=== PATIENT | female | born 1985 | race Caucasian/White ===

== ENCOUNTER 2017-02-02 08:58 | Day surgery (SDC) | payer OTHER ==
[2017-01-24 14:59] VITALS: BMI 26.3
--- NOTE | 2017-02-02 07:53 | OP ---
Operative Note - Note: Operative Date: 02/02/17 Pre-Operative Diagnosis: r sh tear Operation: scope r sh Surgeon: Nigel Trejo V Anesthesia: Fractional Estimated Blood Loss (mls): 11 Operative Report Dictated: Yes
--- NOTE | 2017-02-02 07:54 | HP ---
History & Physical Update - History History: No Change - Physical Physical: No Change - Assessment Assessment: No Change - Plan Plan: No Change
[2017-02-02] MEDS ORDERED: MIDAZOLAM HCL 2 MG/2 ML SINGLE DOSE VIAL ONE ×3 (10:34→11:10)
[2017-02-02] MEDS ORDERED: DEXAMETHASONE SOD PHOSPHATE/PF 10 MG/ML SDV ONE (10:34)
[2017-02-02] MEDS ORDERED: BUPIVACAINE HCL/PF (5 MG/ML) 30 ML VIAL IJ ONE (10:35)
[2017-02-02] MEDS ORDERED: oxyCODONE HCL 5 MG TABLET PO PRN (11:05)
[2017-02-02] MEDS ORDERED: ONDANSETRON 4 MG/2 ML VIAL IVPUSH PRN (11:05)
[2017-02-02] MEDS ORDERED: DEXAMETHASONE SOD PHOSPHATE 4 MG/1 ML VIAL ONE (11:10)
[2017-02-02] MEDS ORDERED: LIDOCAINE HCL/PF 2% SDV 5ML VIAL ONE (11:10)
[2017-02-02] MEDS ORDERED: KETOROLAC TROMETHAMINE 30 MG/1 ML VIAL ONE (11:10)
[2017-02-02] MEDS ORDERED: PROPOFOL 20 ML ONE (11:10)
[2017-02-02] MEDS ORDERED: ceFAZolin SODIUM 1 GM VIAL ONE (11:10)
[2017-02-02] MEDS ORDERED: LACTATED RINGERS SOLUTION 1,000 ML IV SCH (11:15)
[2017-02-02] MEDS ORDERED: CEFAZOLIN 1 GM/D5W 50 ML IVPB ONE (12:00)
[2017-02-02] MEDS ORDERED: MEPERIDINE HCL CARPU-JECT 25 MG/1 ML DISP.SYRIN ONE (12:52)
--- NOTE | 2017-02-02 13:54 | OP ---
DATE OF OPERATION: 02/02/2017 SURGEON: Nigel Vazquez MD CLE[employer]ER [employer] UPHOLSTERY: JOSEP Park ANESTHESIA: Rishi Boateng CRNA, general with block. ANTIBIOTIC: Kefzol 2 g. PREOPERATIVE DIAGNOSIS: Right shoulder internal derangement. POSTOPERATIVE DIAGNOSES: Right shoulder cuff tear, impingement, acromioclavicular arthritis, and labral tearing. PROCEDURE PERFORMED: Rotator cuff repair, acromioclavicular arthroplasty, arthroscopic subacromial decompression, and labrectomy. HISTORY: A 31-year-old woman who has not improved from this injury despite conservative measures. She had a cuff tear impingement. Her biceps was clean as a whistle. She had a sublabral foramen which was not a tear. She had a fairly lax shoulder but no Bankart lesion. The subscapularis was intact. There were no loose bodies in the pouch. She had impingement morphology, AC arthrosis, and the cuff tear as we noted. DESCRIPTION OF PROCEDURE: Patient brought to the operating room, placed on the table in the beach chair position. Olecranons were padded. Care was taken with the neck. Sterile prep and drape was performed with Betadine solution, antibiotics were given, and the arthroscope was entered through the posterior portal. Labrectomy: Getting into the shoulder, the above findings were noted. There was a large posterior-superior flap of labrum which was interposing and likely symptomatic. This was resected and normalized using hand and motorized instrumentation. Cuff repair: We marked the undersurface of the rotator cuff which was visible from below with a needle. We went superiorly and debrided back the cuff tear to good tissue. This left us with about a 1.7-cm tear in the supraspinatus. We prepared the juxtaarticular surface of the greater tuberosity down to punctate bleeding bone and then placed our medial row anchor which was a triple Regenerex by [employer]. Sutures were passed in mattress fashion in about a 75-degree arc. We then did a second row using 4.5 Bio PushLocks by [employer]. We were very pleased with cuff contact, pressures and stability. Acromioclavicular arthroplasty: We now resected the entire distal aspect of the clavicle. The outer 11 mm were taken. Care was taken to avoid the conoid and trapezoid ligaments. Arthroscopic subacromial decompression: We now performed a biplaning acromioplasty and took down the CA ligament for a significant anteromedial hook. This was done with bone instruments. Conclusion: We closed the portals with Monocryl. A dressing was applied. She returned to Recovery with vital signs stable, having tolerated the procedure well. She will be discharged to home now from the outpatient area with shoulder sheath and Percocet. I will see her in the office for followup in 1 week. NIGEL VAZQUEZ M.D. [id number] MTDD
[2017-02-02] MEDS ORDERED: MEPERIDINE HCL CARPU-JECT 25 MG/1 ML DISP.SYRIN IVPUSH ONE (14:00)
[2017-02-02 17:02] VITALS: BP 114/60; PULSE 75; TEMP 97.9
--- NOTE | 2017-02-05 15:34 | SURG ---
Surgery Copy Operator Note Copy Operator: Araceli Boateng PA-C Date of Service: 02/02/17 Diagnosis: Pre-op: Right shoulder internal derangement POst-op: Right shoulder cuff tear, impingement, acromioclavicular arthritis, and labral tearing Procedure: Rotator cuff repair, acromioclavicular arthroplasty, arthroscopic subacromial decompression, and labrectomy I was present for the entirety of the operative procedure. For further detail, please refer to operative report. Visit type - Case Type Case Type: Scheduled Admission
--- NOTE | 2017-02-08 15:09 | PATH ---
Surgical Pathology Report Patient Name: MAXIMUS PERES [facility]. Rec. #: [id number] /Age/Gender: 1985 (Age: 31) / F Account: [id number] Location: [facility] Taken: 02/02/2017 Received: 02/02/2017 Reported: 02/08/2017 Physicians: Nigel Trjeo M.D. Specimen(s) Received SHAVINGS RIGHT SHOULDER Clinical History Right rotator cuff tear Final Diagnosis SHOULDER, RIGHT, ARTHROSCOPIC SHAVINGS: FIBROCOLLAGENOUS TISSUE AND SKELETAL MUSCLE. Electronically Signed Beatris Garcias M.D. Gross Description Received in formalin, labeled "shavings right shoulder" and 3.0 x 2.0 x 0.7 cm multiple fragments of cuevas-white and cuevas-yellow tissue. Hand Tire Trimmer sections submitted one cassette. AF/02/05/2017 final/02/05/2017
== END 2017-02-02 15:45 | disposition home or self-care (01) ==
LOC: FASU 08:58
PROVIDERS: ATTEND Orthopaedic Surgery
PROC: 0PB94ZZ Excision of Right Clavicle, Percutaneous Endoscopic Approach (ICD-10-PCS; 2017-02-02)
PROC: 0RQJ4ZZ Repair Right Shoulder Joint, Percutaneous Endoscopic Approach (ICD-10-PCS; 2017-02-02)
PROC: 0LB14ZZ Excision of Right Shoulder Tendon, Percutaneous Endoscopic Approach (ICD-10-PCS; principal; 2017-02-02 11:56)
PROC: 0RNJ4ZZ Release Right Shoulder Joint, Percutaneous Endoscopic Approach (ICD-10-PCS; 2017-02-02 11:56)
DX: M75.101 Unspecified rotator cuff tear or rupture of right shoulder, not specified as traumatic (principal); M75.41 Impingement syndrome of right shoulder; M19.011 Primary osteoarthritis, right shoulder; M24.111 Other articular cartilage disorders, right shoulder
CPT/HCPCS: 84703; 88304-TC; 94760

== ENCOUNTER 2017-05-24 18:13 | Emergency (ER) | payer OTHER ==
[2017-05-24 18:26] VITALS: BP 128/71; PULSE 76; TEMP 98.1; BMI 26.6
--- NOTE | 2017-05-24 18:51 | PDOC ---
History of Present Illness - General Chief Complaint: Respiratory Stated Complaint: CHEST PAIN Time Seen by Provider: 05/24/17 18:50 History Source: Patient Exam Limitations: No Limitations - History of Present Illness Initial Comments: 05/24/17 19:30 My chief complaint: Cough with chest discomfort fever and vomiting after coughing History of present illness: Patient is a 31-year-old female with a history of anemia and GERD here today complaining of starting with a cough 6 days ago with posttussive vomiting and chest discomfort patient last vomited 3 days ago. Posttussive. Patient reports having a productive cough with clear phlegm. Patient reports having a MAXIMUM TEMPERATURE of 103 last night. Patient denies any wheezing or shortness of breath. Patient denies any abdominal pain. Patient denies any chance of . She reports that one of her friends was recently diagnosed with pneumonia yesterday that she had been around. Patient also works in a daycare center. She denies any recent travel.. Timing/Duration: intermittent (6 days) Severity: moderate Associated Symptoms: reports: cough (productive clear ), fever/chills (TMAX 103 last night), nausea/vomiting (post tussive for a few days none for 3 days). denies: shortness of breath Past History - Past Medical History Allergies/Adverse Reactions: Allergies Allergy/AdvReac Type Severity Reaction Status Date / Time No Known Allergies Allergy Verified 05/24/17 18:23 Home Medications: Ambulatory Orders Ferrous Sulfate [Feosol] 325 mg PO BID 08/01/16 Azithromycin [Zithromax 250mg Tablets -] 250 mg PO UTDICT #6 tab 05/24/17 Guaifenesin Dm [Mucinex Dm -] 1 tab PO Q12H PRN #14 tab.er.12h MDD 2 05/24/17 Anemia: Yes Asthma: No Cancer: No Cardiac Disorders: No CVA: No COPD: No CHF: No Dementia: No Diabetes: No GI Disorders: Yes (GERD) Disorders: No HTN: No Hypercholesterolemia: No Liver Disease: No Seizures: No Thyroid Disease: No - Surgical History Abdominal Surgery: Yes (GASTRIC SLEEVE 01/2014/LESLEE PAINTING 2015) Appendectomy: No Cardiac Surgery: No Cholecystectomy: No GI Surgery: Yes (gastric sleeve) Lung Surgery: No Neurologic Surgery: No Orthopedic Surgery: No - Immunization History Immunization Up to Date: Yes - Suicide/Smoking/Psychosocial Hx Smoking Status: No Smoking History: Never smoked Have you smoked in the past 12 months: No Number of Cigarettes Smoked Daily: 0 Hx Alcohol Use: Yes (RARE) Drug/Substance Use Hx: No Substance Use Type: Alcohol Hx Substance Use Treatment: No Review of Systems - Review of Systems Able to Perform ROS?: Yes Constitutional: Yes: Fever, Weakness (generalized ) HEENTM: No: Symptoms Reported Respiratory: Yes: Productive cough (clear ). No: Orthopnea, Shortness of Breath , SOB with Exertion, SOB at Rest, Stridor, Wheezing, Hemoptysis Cardiac (ROS): No: Symptoms Reported ABD/GI: Yes: Vomiting (post tussive stasrted 6 days ago, last time 3 days ago) Musculoskeletal: No: Symptoms Reported Integumentary: No: Symptoms Reported Neurological: No: Symptoms reported *Physical Exam - Vital Signs Last Vital Signs Temp Pulse Resp BP Pulse Ox 98.1 F 76 19 128/71 98 05/24/17 18:23 05/24/17 18:23 05/24/17 18:23 05/24/17 18:23 05/24/17 18:23 - Physical Exam General Appearance: Yes: Appropriately Dressed HEENT: positive: Normal ENT Inspection Neck: negative: Lymphadenopathy (R), Lymphadenopathy (L) Respiratory/Chest: positive: Lungs Clear, Normal Breath Sounds. negative: Chest Tender, Respiratory Distress Cardiovascular: positive: Regular Rhythm, Regular Rate, S1, S2 Gastrointestinal/Abdominal: positive: Normal Bowel Sounds, Soft. negative: Tender, Organomegaly, Distended, Guarding, Rebound, Tenderness, Hepatomegaly, Spleenomegaly Integumentary: positive: Normal Color Neurologic: positive: Alert, Responsive Heart Score/ECG Review - ST and T Comment:: 05/24/17 20:20 NSR reviewed by Medical Decision Making - Medical Decision Making 05/24/17 19:32 Patient is a 31-year-old female with a history of anemia and GERD here today complaining of starting with a cough 6 days ago with posttussive vomiting and chest discomfort patient last vomited 3 days ago. Posttussive. Patient reports having a productive cough with clear phlegm. Patient reports having a MAXIMUM TEMPERATURE of 103 last night. Patient denies any wheezing or shortness of breath. Patient denies any abdominal pain. Patient denies any chance of . She reports that one of her friends was recently diagnosed with pneumonia yesterday that she had been around. Patient also works in a daycare center. She denies any recent travel. Rule out infiltrate Plan: X-ray chest PA and lateral questionable early infiltrate right lower lobe Decadron 10 mg by mouth now DuoNeb 05/24/17 20:15 will treat with Mucinex DM 1 tab q 12hr prn cough for 5 days azithromycin 250 mg 2 tabs day one than 1 tab daily for following 4 days EKG NSR reviewed by 05/24/17 20:20 *DC/Admit/Observation/Transfer Diagnosis at time of Disposition: Bronchitis - Discharge Dispostion Disposition: HOME Condition at time of disposition: Stable - Patient Instructions Additional Instructions: drink a lot a fluids Follow up with primary care provider within the next few days Return to emergency room if symptoms worsen any difficulty breathing Take ibuprofen or acetaminophen as needed as directed by hammer driver for pain or fever Patient voiced understanding of discharge instructions and all questions were answered - Post Discharge Activity Forms/Work/School Notes: Back to Work
[2017-05-24] MEDS ORDERED: DEXAMETHASONE LIQUID 0.5 MG/5 ML 240 ML BULK BOTTLE PO ONE (19:25)
[2017-05-24] MEDS ORDERED: ALBUTEROL SO4 2.5/IPRATROPIUM 0.5 INH SOL 3 ML VIAL.NEB. NEB ONE ×2 (19:25→19:29)
[2017-05-24] MEDS ORDERED: DEXAMETHASONE SOD PHOSPHATE 10 MG/1 ML VIAL ONE (19:29)
--- NOTE | 2017-05-26 13:17 | EKG ---
Test Reason : Blood Pressure : / mmHG Vent. Rate : 066 BPM Atrial Rate : 066 BPM P-R Int : 154 ms QRS Dur : 078 ms QT Int : 398 ms P-R-T Axes : 033 061 052 degrees QTc Int : 417 ms NORMAL SINUS RHYTHM NORMAL ECG WHEN COMPARED WITH ECG OF 04-DEC-2014 17:42, NONSPECIFIC T WAVE ABNORMALITY NO LONGER EVIDENT IN INFERIOR LEADS NONSPECIFIC T WAVE ABNORMALITY NO LONGER EVIDENT IN LATERAL LEADS BASELINE ARTIFACT Confirmed by MONTANA RODRIGUEZ, ZAINA ([id number]) on 05/26/2017 1:16:59 PM Referred By: Confirmed By:ZAINA BOYLE MD
== END 2017-05-24 20:23 | disposition home or self-care (01) ==
LOC: JERFT 18:13
PROC: 3E0F7GC Introduction of Other Therapeutic Substance into Respiratory Tract, Via Natural or Artificial Opening (ICD-10-PCS; principal; 2017-05-24)
DX: J20.9 Acute bronchitis, unspecified (principal); K21.9 Gastro-esophageal reflux disease without esophagitis; Z98.84 Bariatric surgery status
CPT/HCPCS: 71020-TC; 93005; 93010; 99281-25

== ENCOUNTER 2017-06-24 23:12 | Emergency (ER) | payer OTHER ==
[2017-06-24 23:23] VITALS: BP 113/83; PULSE 72; BMI 26.7
[2017-06-24 23:35] VITALS: TEMP 98.2
--- NOTE | 2017-06-24 23:50 | PDOC ---
History of Present Illness - General History Source: Patient Exam Limitations: No Limitations - History of Present Illness Initial Comments: 06/24/17 23:57 The patient is a 31 year old female with a significant past medical history of acid reflux who presents to the ED with complaints of chest pain for one day. The patient reports a sudden onset sharp midsternal chest pain while she was driving that lasted for 2 minutes before residing. She reports chest discomfort last night. Patient was seen in the ED 3 weeks ago and was diagnosed with bronchitis. She reports a progressively worsening cough productive of white phlegm since yesterday. Denies fever or chills. Denies abdominal pain, nausea, or diarrhea. Denies shortness of breath or palpitations. Denies any other symptoms. <Maykel Kuhn - Last Filed: 06/25/17 00:02> <Argelia Pinto - Last Filed: 06/25/17 01:34> - General Chief Complaint: Chest Pain Stated Complaint: CHEST PAIN Time Seen by Provider: 06/24/17 23:25 Past History <Maykel Kuhn - Last Filed: 06/25/17 00:02> - Past Medical History Anemia: Yes Asthma: No Cancer: No Cardiac Disorders: No CVA: No COPD: No CHF: No Dementia: No Diabetes: No GI Disorders: Yes (GERD) Disorders: No HTN: No Hypercholesterolemia: No Liver Disease: No Seizures: No Thyroid Disease: No - Surgical History Abdominal Surgery: Yes (GASTRIC SLEEVE 01/2014/LESLEE PAINTING 2015) Appendectomy: No Cardiac Surgery: No Cholecystectomy: No GI Surgery: Yes (gastric sleeve) Lung Surgery: No Neurologic Surgery: No Orthopedic Surgery: No - Immunization History Immunization Up to Date: Yes - Suicide/Smoking/Psychosocial Hx Smoking Status: No Smoking History: Never smoked Have you smoked in the past 12 months: No Number of Cigarettes Smoked Daily: 0 Hx Alcohol Use: Yes (RARE) Drug/Substance Use Hx: No Substance Use Type: Alcohol Hx Substance Use Treatment: No <Argelia Pinto - Last Filed: 06/25/17 01:34> - Past Medical History Allergies/Adverse Reactions: Allergies Allergy/AdvReac Type Severity Reaction Status Date / Time No Known Allergies Allergy Verified 06/24/17 23:21 Home Medications: Ambulatory Orders Albuterol Sulfate Inhaler - [Ventolin Hfa Inhaler -] 1 - 2 inh PO Q4H PRN #1 inhaler 06/25/17 Methylprednisolone [Medrol Dose Mk] 4 mg PO ASDIR #21 tablet 06/25/17 Review of Systems - Review of Systems Able to Perform ROS?: Yes Comments:: 06/24/17 23:57 CONSTITUTIONAL: No reported: Fever, Chills, Diaphoresis, Generalized Weakness, Malaise, Loss of Appetite HEENT: No reported: Rhinorrhea, Nasal Congestion, Throat Pain, Throat Swelling, Difficulty Swallowing, Mouth Swelling, Ear Pain, Eye Pain, Visual Changes CARDIOVASCULAR: + chest pain No reported: Syncope, Palpitations, Irregular Heart Rate, Lightheadedness, Peripheral Edema RESPIRATORY: + cough No reported:Shortness of Breath, SOB with Exertion, Orthopnea, Wheezing, Stridor , Hemoptysis GASTROINTESTINAL: No reported: Abdominal pain, Abdominal Distension, Nausea, Vomiting, Diarrhea, Constipation, Melena, Hematochezia GENITOURINARY: No reported: Dysuria, Frequency, Urgency, Hesitancy, Flank Pain, Genital Pain MUSCULOSKELETAL: No reported: Myalgia, Arthralgia, Joint Swelling, Back pain, Neck Pain SKIN: No reported: Rash, Itching, Pallor HEMEATOLOGIC/IMMUNOLOGIC: No reported: Easy Bleeding, Easy Bruising, Lymphadenopathy, Frequent infections ENDOCRINE: No reported: Unexplained Weight Gain, Unexplained Weight Loss, Heat Intolerance , Cold Intolerance NEUROLOGIC: No reported: Headache, Focal Weakness, Paresthesias, Vertigo, Lightheadedness, Unsteady Gait, Seizure, Mental Status Changes, Incontinence PSYCHIATRIC: No reported: Anxiety, Depression <Maykel Kuhn - Last Filed: 06/25/17 00:02> *Physical Exam - Vital Signs Last Vital Signs Temp Pulse Resp BP Pulse Ox 98.2 F 72 113/83 100 06/24/17 23:34 06/24/17 23:21 06/24/17 23:21 06/24/17 23:21 - Physical Exam Comments: 06/24/17 23:58 GENERAL: The patient is awake, alert, and fully oriented, Nontoxic - in no acute distress. HEAD: Normocephalic, atraumatic. EYES: extraocular movements intact, sclera anicteric, conjunctiva clear. ENT: Normal voice, Moist mucous membranes. NECK: Normal range of motion, supple LUNGS: Breath sounds equal, clear to auscultation bilaterally. No wheezes, no rhonchi, no rales. HEART: Regular rate and rhythm, without murmur, rub or gallop. ABDOMEN: Soft, nontender, normoactive bowel sounds. No guarding, no rebound.No CVA tenderness EXTREMITIES: Normal range of motion, no edema. No clubbing or cyanosis. No cords, erythema, or tenderness. NEUROLOGICAL: No facial assymetry, Normal speech, PSYCH: Normal mood, normal affect. SKIN: Warm, Dry, normal turgor, <Maykel Kuhn - Last Filed: 06/25/17 00:02> - Vital Signs Last Vital Signs Temp Pulse Resp BP Pulse Ox 98.2 F 72 113/83 100 06/24/17 23:34 06/24/17 23:21 06/24/17 23:21 06/24/17 23:21 <Argelia Pinto - Last Filed: 06/25/17 01:34> Heart Score/ECG Review #1 06/25/17 00:02 Vent. rate 6 bpm MO interval 158 ms QRS duration 86 ms Normal sinus rhythm Unchanged from previous <Maykel Kuhn - Last Filed: 06/25/17 00:02> *DC/Admit/Observation/Transfer - Attestations Scribe Attestion: 06/24/17 23:58 Documentation prepared by Maykel Kuhn, acting as medical device sales representative for Argelia Pinto MD <Maykel Kuhn - Last Filed: 06/25/17 00:02> <Argelia Pinto - Last Filed: 06/25/17 01:34> Diagnosis at time of Disposition: Bronchitis - Discharge Dispostion Disposition: HOME Condition at time of disposition: Stable - Prescriptions Prescriptions: Albuterol Sulfate Inhaler - [Ventolin Hfa Inhaler -] 1 - 2 inh PO Q4H PRN #1 inhaler PRN Reason: Wheezing Methylprednisolone [Medrol Dose Mk] 4 mg PO ASDIR #21 tablet - Patient Instructions Printed Discharge Instructions: DI for Acute Bronchitis Additional Instructions: please cotton picker your medications at [facility] pharmacy followup with your regular physician
[2017-06-24] MEDS ORDERED: ALBUTEROL SO4 2.5/IPRATROPIUM 0.5 INH SOL 3 ML VIAL.NEB. NEB ONE (23:52)
[2017-06-24] MEDS ORDERED: MAG HYDROX/AL HYDROX/SIMETH 30 ML UNIT-DOSE CUP ONE (23:56)
[2017-06-25] MEDS ORDERED: predniSONE 20 MG TABLET (UD) PO ONE (01:25)
[2017-06-25] MEDS ORDERED: predniSONE 20 MG TABLET (UD) ONE (01:31)
--- NOTE | 2017-06-25 09:56 | EKG ---
Test Reason : Blood Pressure : / mmHG Vent. Rate : 066 BPM Atrial Rate : 066 BPM P-R Int : 158 ms QRS Dur : 086 ms QT Int : 410 ms P-R-T Axes : 042 068 057 degrees QTc Int : 429 ms NORMAL SINUS RHYTHM NORMAL ECG WHEN COMPARED WITH ECG OF 24-MAY-2017 18:25, NO SIGNIFICANT CHANGE WAS FOUND Confirmed by BARBIE BAHENA MD ([id number]) on 06/25/2017 9:55:43 AM Referred By: Confirmed By:BARBIE BAHENA MD
== END 2017-06-25 01:43 | disposition home or self-care (01) ==
LOC: JER 23:12
DX: J40 Bronchitis, not specified as acute or chronic (principal); K21.9 Gastro-esophageal reflux disease without esophagitis; D64.9 Anemia, unspecified; Z98.84 Bariatric surgery status
CPT/HCPCS: 71020-TC; 84703; 93005; 93010; 99281-25